=== PATIENT | female | born 1940 | race Caucasian/White ===

== ENCOUNTER → 2017-02-03 | Outpatient (CLI) | payer OTHER ==
[~2017-02-03] MED LIST: ACET-1256 PO; AMX500 PO; ATOR-26 PO; BENZ0.5T28 PO; CEPH500C PO; DEXT100S PO; DEXT1CAP9 PO; DIPH1CAP60 PO; DIPH25CA65 PO; ESTCR TOP; MRLP527 PO; MTR/600 PO; PENT100C6 PO; PERP4TAB37 PO; PHEN-876 PO; SOLI5TAB2 PO; TRAM-10 PO; TRL2 PO
[2017-02-03 14:39] LABS: BASO % 0.1 %; BASO ABS # 0.02 K/uL (0-0.2); COMPLETE YES; EOS % 0.6 %; HEMATOCRIT 42.3 % (37-47); IG% 0.3 %; LYMPH % 15.3 %; LYMPH ABS # 2.21 K/uL (1.2-3.4); MEAN CELL VOLUME 92.2 fL (80-100); MEAN CORPUSCULAR HEMOGLOBIN 29.6 pg (25-34); MEAN CORPUSCULAR HGB CONC 32.2 g/dl (32-36); MEAN PLATELET VOLUME 9.3 fL (7.4-10.4); MONO % 6.4 %; NEUT % 77.3 %; PLATELET COUNT 268 K/uL (130-400); RED BLOOD COUNT 4.59 M/uL (4.2-5.4); WHITE BLOOD COUNT 14.45 K/uL (4.8-10.8)
[2017-02-03 15:16] LABS: ALT/SGPT 23 U/L (12-78); AST/SGOT 12 U/L (15-37); BLOOD UREA NITROGEN 21 mg/dl (7-18); BUN/CREATININE RATIO 22.8 (10-20); CALCIUM 8.8 mg/dl (8.5-10.1); CARBON DIOXIDE 27 mmol/L (21-32); CHLORIDE 107 mmol/L (98-107); CREATININE 0.93 mg/dl (0.60-1.20); GLUCOSE 126 mg/dl (70-99); POTASSIUM 3.9 mmol/L (3.5-5.1); SODIUM 142 mmol/L (136-145)
[2017-02-03 15:27] LABS: ALB/GLOB RATIO 0.9 (0.9-2); ALKALINE PHOSPHATASE 138 U/L (45-117); CHOLESTEROL 120 mg/dl (0-200); CHOLESTEROL/HDL RATIO 2.7; HDL CHOLESTEROL 45 mg/dl; LDL CHOLESTEROL CALCULATED 35 mg/dl; TRIGLYCERIDES 201 mg/dl (0-150); VERY LOW DENSITY LIPOPROT CALC 40 mg/dl
[2017-02-04 06:46] LABS: ESTIMATED AVERAGE GLUCOSE 134 mg/dl; HA1C FLAG Normal (Normal)
== END | disposition home or self-care (01) ==
LOC: C.LAB 14:06
PROVIDERS: ATTEND Internal Medicine
DX: E11.9 Type 2 diabetes mellitus without complications (principal)

== ENCOUNTER → 2017-02-16 | Outpatient (CLI) | payer OTHER ==
[2017-02-16 17:35] LABS: URINE APPEARANCE CLEAR (CLEAR); URINE BILIRUBIN NEG (NEG); URINE COLOR YELLOW; URINE EPITHELIAL CELL AUTO >30 /lpf (0-5); URINE NITRITE NEG (NEG); URINE SPECIFIC GRAVITY 1.013 (1.000-1.030); UROBILINOGEN NEG (NEG)
[2017-02-16 17:39] LABS: MANUAL MICROSCOPIC REQUIRED? NO; REVIEW REQ? NO
== END | disposition home or self-care (01) ==
LOC: C.LABBFT 13:45
PROVIDERS: ATTEND Internal Medicine
DX: R39.9 Unspecified symptoms and signs involving the genitourinary system (principal)

== ENCOUNTER 2017-06-03 18:40 | Emergency (ER) | payer OTHER ==
[~2017-06-03] VITALS: Ht 154.9 cm; Wt 72.1 kg
[~2017-06-03 18:40] MED LIST changes: -BENZ0.5T28 PO; -CEPH500C PO; +CGN5 PO; -DIPH1CAP60 PO; -PENT100C6 PO; -PERP4TAB37 PO; -PHEN-876 PO
[2017-06-03 19:05] VITALS: Ht 154.9 cm; Wt 72.1 kg
[2017-06-03] MEDS ORDERED: KETOROLAC TROMETHAMINE 15 MG/ML VIAL IV STA (20:25)
[2017-06-03] MEDS ORDERED: PHENAZOPYRIDINE HCL 200 MG TAB PO STA (20:25)
--- NOTE | 2017-06-03 20:30 | EMERGENCY ROOM VISIT NOTE ---
History Report prepared by Seema: Erlinda Flores Under the Supervision of: Dr. Gordon Younger M.D. First contact with patient: 20:16 Chief Complaint: URINARY SYMPTOMS Stated Complaint: POSSIBLE UTI, PAIN/BURNING Nursing Triage Summary: chronic UTIs. symptoms started yesterday. History of Present Illness The patient is a 77 year old female who presents to the Emergency Room with complaints of persistent groin pain starting several weeks ago. The patient describes the as burning. It improves with Tylenol and ibuprofen. She has had multiple UTIs in the past and has followed with urologist, but they have not found the cause of her UTIs. The church communications administrator at the personal residential states that she has been at baseline. She has been on antibiotics. She denies any abdominal pain or other pain besides the groin pain. Source of History: patient, other Onset: several weeks ago Position: other (groin) Quality: burning Timing: other (persistent) Modifying Factors (Relieving): tylenol, ibuprofen Associated Symptoms: No abdominal pain Review of Systems See HPI for pertinent positives & negatives. A total of 10 systems reviewed and were otherwise negative. Past Medical & Surgical Medical Problems: (1) Hyperlipidemia (2) Schizophrenia (3) Tremor Surgical Problems: (1) H/O: hysterectomy Family History Asthma Bleeding disorder Depression Kidney disease Seizures Social History Smoking Status: Never Smoker Alcohol Use: none Drug Use: none Marital Status: single Occupation Status: retired Current/Historical Medications Scheduled Atorvastatin (Lipitor), 80 MG PO DAILY Cephalexin Monohydrate (Keflex), 1 CAP PO BID Diphenhydramine Hcl (Diphenhist), 1 CAP PO HS Pentosan Polysulfate Sodium (Elmiron), 1 CAP PO TID Perphenazine (Trilafon), 1 TAB PO TID Phenazopyridine HCl (Pyridium), 200 MG PO TID Polyethylene (Polyethylene Glycol 3350), 17 GM PO DAILY Solifenacin Succinate (Vesicare), 5 MG PO DAILY Scheduled PRN Acetaminophen (Tylenol), 1,000 MG PO TID PRN for Pain or Fever Dextromethorphan-Guaifenesin (Tussin Dm), 10 ML PO HS PRN for Cough Dextromethorphan-Phenylephrine (Vicks Dayquil Cold & Flu), 30 ML PO Q4 PRN for Cold Symptoms Ibuprofen (Ibuprofen), 600 MG PO TID PRN for Pain Allergies Coded Allergies: Morphine (Verified Adverse Reaction, Unknown, Nausea., 06/03/17) Reported by PT. Physical Exam Vital Signs Date Time Temp Pulse Resp B/P (MAP) Pulse Ox O2 Delivery O2 Flow Rate FiO2 06/03/17 23:01 36.7 80 20 155/80 95 Room Air 06/03/17 20:48 36.7 80 20 163/80 95 Room Air 06/03/17 19:05 36.9 78 20 140/82 94 Room Air Physical Exam GENERAL: Patient is a healthy-appearing well-nourished female HEAD: Normocephalic atraumatic EYES: Ocular movements intact pupils equal and react to light OROPHARYNX mucous membranes are moist no exudates present no erythema or edema present NECK: Supple no nuchal rigidity CHEST: Good equal expansion LUNGS: Clear and equal to auscultation CARDIAC: Normal S1 and S2 ABDOMEN: Soft nontender no guarding BACK: No CVA tenderness EXTREMITIES: No pain upon palpation normal muscle strength in all groups no clubbing cyanosis or edema NEURO: Patient is following commands and answering questions appropriately. Alert and oriented x3 Cranial Nerves 2-12 grossly intact Medical Decision & Procedures ER Provider Diagnostic Interpretation: Radiology results as stated below per my review and radiologist interpretation: PELVIC COMPLETE NON OB HISTORY: 77 years-old Female Pt c/o vag burning acute vaginal bleeding. Initial exam COMPARISON: CT 04/18/2016 TECHNIQUE: Multiple real-time sonographic images of the deep pelvic structures were obtained transabdominally. FINDINGS: Uterus is surgically absent. Ovaries are not identified. No focal mass, collection or other abnormality identified within the pelvis. No abnormality seen within the region of the vaginal cuff. Urinary bladder is unremarkable as seen. IMPRESSION: 1. Prior hysterectomy. No focal abnormality seen within the region of the vaginal cuff. 2. Nonvisualization of the ovaries. The above report was generated using voice recognition software. It may contain grammatical, syntax or spelling errors. Electronically signed by: Elfego Carson M.D. 06/03/2017 11:01 PM Dictated Date/Time: 06/03/2017 11:00 PM Laboratory Results 06/03/17 20:30 Red Blood Count 4.31, Mean Corpuscular Volume 91.4, Mean Corpuscular Hemoglobin 30.6, Mean Corpuscular Hemoglobin Concent 33.5, Mean Platelet Volume 9.5, Neutrophils (%) (Auto) 71.2, Lymphocytes (%) (Auto) 19.7, Monocytes (%) (Auto) 7.3, Eosinophils (%) (Auto) 1.4, Basophils (%) (Auto) 0.2, Neutrophils # (Auto) 8.94, Lymphocytes # (Auto) 2.47, Monocytes # (Auto) 0.92, Eosinophils # (Auto) 0.18, Basophils # (Auto) 0.02 06/03/17 20:30 Test 06/03/17 20:14 06/03/17 20:30 Urine Color YELLOW Urine Appearance CLEAR (CLEAR) Urine pH 6.0 (4.5-7.5) Urine Specific [place] 1.019 (1.000-1.030) Urine Protein NEG (NEG) Urine Glucose (UA) NEG (NEG) Urine Ketones NEG (NEG) Urine Occult Blood NEG (NEG) Urine Nitrite NEG (NEG) Urine Bilirubin NEG (NEG) Urine Urobilinogen NEG (NEG) Urine Leukocyte Esterase MODERATE (NEG) Urine WBC (Auto) 5-10 /hpf (0-5) Urine RBC (Auto) 0-4 /hpf (0-4) Urine Hyaline Casts (Auto) 1-5 /lpf (0-5) Urine Epithelial Cells (Auto) >30 /lpf (0-5) Urine Bacteria (Auto) NEG (NEG) White Blood Count 12.55 K/uL (4.8-10.8) Red Blood Count 4.31 M/uL (4.2-5.4) Hemoglobin 13.2 g/dL (12.0-16.0) Hematocrit 39.4 % (37-47) Mean Corpuscular Volume 91.4 fL (80-100) Mean Corpuscular Hemoglobin 30.6 pg (25-34) Mean Corpuscular Hemoglobin Concent 33.5 g/dl (32-36) Platelet Count 223 K/uL (130-400) Mean Platelet Volume 9.5 fL (7.4-10.4) Neutrophils (%) (Auto) 71.2 % Lymphocytes (%) (Auto) 19.7 % Monocytes (%) (Auto) 7.3 % Eosinophils (%) (Auto) 1.4 % Basophils (%) (Auto) 0.2 % Neutrophils # (Auto) 8.94 K/uL (1.4-6.5) Lymphocytes # (Auto) 2.47 K/uL (1.2-3.4) Monocytes # (Auto) 0.92 K/uL (0.11-0.59) Eosinophils # (Auto) 0.18 K/uL (0-0.5) Basophils # (Auto) 0.02 K/uL (0-0.2) RDW Standard Deviation 47.4 fL (36.4-46.3) RDW Coefficient of Variation 14.1 % (11.5-14.5) Immature Granulocyte % (Auto) 0.2 % Immature Granulocyte # (Auto) 0.02 K/uL (0.00-0.02) Anion Gap 9.0 mmol/L (3-11) Est Creatinine Clear Calc Drug Dose 46.2 ml/min Estimated GFR () 68.3 Estimated GFR (Non- 58.9 BUN/Creatinine Ratio 20.6 (10-20) Calcium Level 9.3 mg/dl (8.5-10.1) Total Bilirubin 0.5 mg/dl (0.2-1) Direct Bilirubin 0.2 mg/dl (0-0.2) Aspartate Amino Transf (AST/SGOT) 21 U/L (15-37) Alanine Aminotransferase (ALT/SGPT) 29 U/L (12-78) Alkaline Phosphatase 134 U/L (45-117) Total Protein 6.8 gm/dl (6.4-8.2) Albumin 3.3 gm/dl (3.4-5.0) Lipase 135 U/L (73-393) Labs reviewed by ED physician. Medications Administered Medications (Trade) Dose Ordered Sig/Megan Route Start Time Stop Time Status Last Admin Dose Admin Phenazopyridine HCl (Pyridium Tab) 200 mg NOW STAT PO 06/03/17 20:25 06/03/17 20:27 DC 06/03/17 20:39 200 MG Ketorolac Tromethamine (Toradol Inj) 15 mg Q6H STAT IV 06/03/17 20:25 06/03/17 20:27 DC 06/03/17 20:39 15 MG Sodium Chloride 1,000 ml @ 999 mls/hr Q1H1M STAT IV 06/03/17 21:57 06/03/17 22:57 DC 06/03/17 22:00 999 MLS/HR Ceftriaxone Sodium (Rocephin Inj) 1 gm NOW STAT IV 06/03/17 21:57 06/03/17 21:58 DC 06/03/17 22:02 1 GM Cephalexin Monohydrate (Keflex 500MG Home Pack) 1 homepack NOW ONCE PO 06/03/17 23:15 06/03/17 23:16 DC 06/03/17 23:24 1 HOMEPACK Phenazopyridine HCl (Phenazopyridine HCl 200MG Home Pack) 1 homepack UD ONCE PO 06/03/17 23:15 06/03/17 23:16 DC 06/03/17 23:25 1 HOMEPACK ED Course 2020: Past medical records reviewed. The patient was evaluated in room C3. A complete history and physical examination was performed. 2024: Toradol Inj 15 mg IV, Pyridium Tab 200 mg PO. 2156: Rocephin Inj 1 gm IV, NSS 1000 ml @ 999 mls/hr IV. 0: Upon reexamination the patient is resting comfortably. I discussed results and treatment plan with the patient. She verbalizes agreement and understanding. The patient is ready for discharge. 5: Phenazopyridine HCl 1 homepack PO, Cephalexin Monohydrate 1 homepack PO. Medical Decision Differential diagnosis: Etiologies such as appendicitis, diverticulitis, PUD, biliary pathology, UTI, pancreatitis, obstruction, mesenteric ischemia, aortic pathology, infections, inflammatory bowel disease, renal colic, as well as others were entertained. This is a 77-year-old female who presents emergency department complaining of urinary symptoms that have been ongoing for months. The patient has been following up with urologist however still having issues. Based on these findings the patient was placed on peridium. She does appear to have a large amount of white blood cells in her urine and I will start her Rocephin and Keflex pending urine culture. Ultrasound of the pelvis does not show any acute process. The patient does have a slight elevation in her white blood cell count that would be consistent with infection. I do feel that she is safe enough to be discharged home as she does not have an elevation in her white blood count cell count. Patient and guardian were in agreement with the treatment plan. Medication Reconcilliation Current Medication List: was personally reviewed by me Blood Pressure Screening Patient's blood pressure: Elevated blood pressure Blood pressure disposition: Elevated BP felt to be situational Impression Primary Impression: Symptoms of urinary tract infection Scribe Attestation The scribe's documentation has been prepared under my direction and personally reviewed by me in its entirety. I confirm that the note above accurately reflects all work, treatment, procedures, and medical decision making performed by me. Departure Information Dispostion Home / Self-Care Prescriptions Phenazopyridine HCl (Pyridium) 200 Mg Tab 200 MG PO TID for Bladder pain, #6 TAB Prov: Gordon Younger MD 06/03/17 Cephalexin Monohydrate (Keflex) 500 Mg Cap 1 CAP PO BID for 7 Days, #14 CAP Prov: Gordon Younger MD 06/03/17 Referrals Dwayne Murray M.D. (PCP) Forms HOME CARE DOCUMENTATION FORM, IMPORTANT VISIT INFORMATION Patient Instructions My [facility] Additional Instructions Need follow up with Urology Culture results are usually available in approx 48 hours You have been examined and treated today on an emergency basis only. This is not a substitute for, or an effort to provide, complete comprehensive medical care. It is impossible to recognize and treat all injuries or illnesses in a single emergency department visit. It is therefore important that you follow up closely with Dr Murray. Call as soon as possible for an appointment. Thank you for your time and consideration. I look forward to speaking with you again soon. Please don't hesitate to call us if you have any questions.
[2017-06-03 20:40] LABS: BASO % 0.2 %; BASO ABS # 0.02 K/uL (0-0.2); COMPLETE YES; EOS % 1.4 %; HEMATOCRIT 39.4 % (37-47); IG% 0.2 %; LYMPH % 19.7 %; LYMPH ABS # 2.47 K/uL (1.2-3.4); MEAN CELL VOLUME 91.4 fL (80-100); MEAN CORPUSCULAR HEMOGLOBIN 30.6 pg (25-34); MEAN CORPUSCULAR HGB CONC 33.5 g/dl (32-36); MEAN PLATELET VOLUME 9.5 fL (7.4-10.4); MONO % 7.3 %; NEUT % 71.2 %; PLATELET COUNT 223 K/uL (130-400); RED BLOOD COUNT 4.31 M/uL (4.2-5.4); WHITE BLOOD COUNT 12.55 K/uL (4.8-10.8)
[2017-06-03 20:58] LABS: BUN/CREATININE RATIO 20.6 (10-20); CALCIUM 9.3 mg/dl (8.5-10.1); CREATININE 0.94 mg/dl (0.60-1.20); POTASSIUM 3.7 mmol/L (3.5-5.1)
[2017-06-03 20:59] LABS: URINE APPEARANCE CLEAR (CLEAR); URINE BILIRUBIN NEG (NEG); URINE COLOR YELLOW; URINE EPITHELIAL CELL AUTO >30 /lpf (0-5); URINE NITRITE NEG (NEG); URINE SPECIFIC GRAVITY 1.019 (1.000-1.030); UROBILINOGEN NEG (NEG)
[2017-06-03 21:03] LABS: MANUAL MICROSCOPIC REQUIRED? NO; REVIEW REQ? NO
[2017-06-03] MEDS ORDERED: CEFTRIAXONE SOD INJ 1 GM ADDVIAL IV STA (21:57)
[2017-06-03] MEDS ORDERED: SODIUM CHLORIDE 0.9% 1000ML 1,000 ML IV STA (21:57)
[2017-06-03 23:01] VITALS: BP 155/80; PULSE 80; TEMP 36.7; O2SAT 95
[2017-06-03] MEDS ORDERED: DIPH1CAP60 PO (23:02)
[2017-06-03] MEDS ORDERED: PERP1TAB11 PO (23:02)
[2017-06-03] MEDS ORDERED: PENT100C6 PO (23:02)
--- NOTE | 2017-06-03 23:02 | DIAGNOSTIC IMAGING REPORT ---
PELVIC COMPLETE NON OB HISTORY: 77 years-old Female Pt c/o vag burning acute vaginal bleeding. Initial exam COMPARISON: CT 04/18/2016 TECHNIQUE: Multiple real-time sonographic images of the deep pelvic structures were obtained transabdominally. FINDINGS: Uterus is surgically absent. Ovaries are not identified. No focal mass, collection or other abnormality identified within the pelvis. No abnormality seen within the region of the vaginal cuff. Urinary bladder is unremarkable as seen. IMPRESSION: 1. Prior hysterectomy. No focal abnormality seen within the region of the vaginal cuff. 2. Nonvisualization of the ovaries. The above report was generated using voice recognition software. It may contain grammatical, syntax or spelling errors. Electronically signed by: Elfego Carson M.D. 06/03/2017 11:01 PM Dictated Date/Time: 06/03/2017 11:00 PM
[2017-06-03] MEDS ORDERED: CEPH500C PO (23:12)
[2017-06-03] MEDS ORDERED: PHEN-876 PO (23:12)
[2017-06-03] MEDS ORDERED: CEPHALEXIN 500MG HOME PACK 1 EA BTL PO ONE (23:15)
[2017-06-03] MEDS ORDERED: PHENAZOPYRIDINE HOME PACK 200 MG VIAL PO ONE (23:15)
== END 2017-06-03 23:27 | disposition home or self-care (01) ==
LOC: C.EDB 18:41 → C.EDC 23:27
DX: R10.30 Lower abdominal pain, unspecified (principal); Z87.440 Personal history of urinary (tract) infections; E78.5 Hyperlipidemia, unspecified; F20.9 Schizophrenia, unspecified; Z90.710 Acquired absence of both cervix and uterus; Z82.5 Family history of asthma and other chronic lower respiratory diseases; Z81.8 Family history of other mental and behavioral disorders; Z79.899 Other long term (current) drug therapy

== ENCOUNTER → 2017-08-10 | Outpatient (CLI) | payer OTHER ==
[~2017-08-10] MED LIST changes: -AMX500 PO; -CGN5 PO; +DIPH1CAP60 PO; -DIPH25CA65 PO; -ESTCR TOP; +PENT100C6 PO; +PERP4TAB37 PO; +PHEN-876 PO; -TRAM-10 PO; -TRL2 PO
[2017-08-10 14:40] LABS: BASO % 0.1 %; BASO ABS # 0.02 K/uL (0-0.2); COMPLETE YES; EOS % 0.1 %; IG% 0.5 %; LYMPH % 15.7 %; LYMPH ABS # 2.71 K/uL (1.2-3.4); MEAN CELL VOLUME 92.6 fL (80-100); MEAN CORPUSCULAR HEMOGLOBIN 30.3 pg (25-34); MEAN CORPUSCULAR HGB CONC 32.8 g/dl (32-36); MEAN PLATELET VOLUME 9.4 fL (7.4-10.4); MONO % 7.1 %; NEUT % 76.5 %; PLATELET COUNT 304 K/uL (130-400); RED BLOOD COUNT 4.32 M/uL (4.2-5.4); WHITE BLOOD COUNT 17.27 K/uL (4.8-10.8)
[2017-08-10 14:52] LABS: ALT/SGPT 27 U/L (12-78); AST/SGOT 16 U/L (15-37); BLOOD UREA NITROGEN 18 mg/dl (7-18); BUN/CREATININE RATIO 20.7 (10-20); CALCIUM 8.7 mg/dl (8.5-10.1); CARBON DIOXIDE 27 mmol/L (21-32); CHLORIDE 104 mmol/L (98-107); CREATININE 0.87 mg/dl (0.60-1.20); GLUCOSE 140 mg/dl (70-99); POTASSIUM 3.7 mmol/L (3.5-5.1); SODIUM 137 mmol/L (136-145)
[2017-08-10 15:00] LABS: CREATININE RANDOM URINE 94.6 mg/dl
[2017-08-10 15:03] LABS: ALB/GLOB RATIO 0.8 (0.9-2); ALKALINE PHOSPHATASE 143 U/L (45-117); CHOLESTEROL 114 mg/dl (0-200); CHOLESTEROL/HDL RATIO 2.9; ESTIMATED AVERAGE GLUCOSE 117 mg/dl; HA1C FLAG Normal (Normal); HDL CHOLESTEROL 40 mg/dl; LDL CHOLESTEROL CALCULATED 37 mg/dl; TRIGLYCERIDES 187 mg/dl (0-150); VERY LOW DENSITY LIPOPROT CALC 37 mg/dl
[2017-08-10 15:10] LABS: RATIO 30.2 mcg/mg (0-30.0)
== END | disposition home or self-care (01) ==
LOC: C.LAB 14:04
PROVIDERS: ATTEND Internal Medicine
DX: E11.9 Type 2 diabetes mellitus without complications (principal); E78.00 Pure hypercholesterolemia, unspecified

== ENCOUNTER 2017-10-08 16:13 | Inpatient (IN) | payer OTHER ==
[~2017-10-08] VITALS: Ht 154.9 cm; Wt 63.8 kg
[2017-10-08] MEDS ORDERED: KETOROLAC TROMETHAMINE 30 MG/ML VIAL IV STA (16:45)
[2017-10-08] MEDS ORDERED: SODIUM CHLORIDE 0.9% 1000ML 1,000 ML IV STA ×3 (16:45→23:18)
[2017-10-08] MEDS ORDERED: ONDANSETRON INJ 2 MG/ML 2 ML VIAL IV STA (16:45)
--- NOTE | 2017-10-08 16:47 | EMERGENCY ROOM VISIT NOTE ---
History Report prepared by Seema: Juan Dumont Under the Supervision of: Dr. Yovani Ovalles M.D. First contact with patient: 16:36 Chief Complaint: ABDOMINAL PAIN Stated Complaint: EXTREME PAIN BLADDER/STOMACH History of Present Illness The patient is a 77 year old female who presents to the Emergency Room from her personal correction ([facility]) with complaints of constant lower abdominal pain starting today. She currently rates her discomfort as an 8/10 in severity. The patient has a history of chronic bladder pain sometimes associated with UTIs , and sometimes she does not have a UTI with the pain. She has been following up with urology, and they have no clear cause for the pain. The patient states that she has burning with urination, and she has a cough from getting over pneumonia. She was on levofloxacin and steroids for her pneumonia started on the . She denies any fever, chills, nausea, vomiting, and hematuria. The patient has a history of two vaginal births. Source of History: patient Onset: today Position: abdomen (lower) Symptom Intensity: 8/10 Timing: constant Associated Symptoms: + cough, No fevers, No chills, No nausea, No vomiting Note: Associated symptoms: Pain with urination Review of Systems See HPI for pertinent positives and negatives. A total of ten systems were reviewed and were otherwise negative. Past Medical & Surgical Medical Problems: (1) Hyperlipidemia (2) Interstitial cystitis (3) Intractable pain (4) Schizophrenia (5) Tremor Surgical Problems: (1) H/O: hysterectomy Family History Asthma Bleeding disorder Depression Kidney disease Seizures Social History Smoking Status: Never Smoker Alcohol Use: none Drug Use: none Marital Status: single Occupation Status: retired Current/Historical Medications Scheduled Atorvastatin (Lipitor), 80 MG PO DAILY Diphenhydramine Hcl (Diphenhist), 25 MG PO HS Levofloxacin (Levaquin), 750 MG PO QPM Pentosan Polysulfate Sodium (Elmiron), 100 MG PO TID Perphenazine (Trilafon), 4 MG PO TID Phenazopyridine HCl (Pyridium), 200 MG PO TID Polyethylene (Polyethylene Glycol 3350), 17 GM PO DAILY Prednisone (Prednisone), 1 DOSE PO UD Solifenacin Succinate (Vesicare), 5 MG PO DAILY Scheduled PRN Acetaminophen (Tylenol), 500-1,000 MG PO TID PRN for Pain or Fever Clobetasol Propionate (Temovate), 1 APPLN TOP DAILY PRN for Itching Dextromethorphan-Guaifenesin (Tussin Dm), 10 ML PO HS PRN for Cough Dextromethorphan-Phenylephrine (Vicks Dayquil Cold & Flu), 30 ML PO Q4 PRN for Cold Symptoms Ibuprofen (Ibuprofen), 600 MG PO TID PRN for Pain Allergies Coded Allergies: Morphine (Verified Adverse Reaction, Unknown, Nausea., 10/08/17) Reported by PT. Physical Exam Vital Signs Date Time Temp Pulse Resp B/P (MAP) Pulse Ox O2 Delivery O2 Flow Rate FiO2 10/09/17 03:23 65 18 117/56 100 10/09/17 02:36 98 Nasal Cannula 3.0 10/09/17 02:36 59 16 105/56 98 Nasal Cannula 3.0 10/09/17 02:35 84 Room Air 10/09/17 01:33 67 18 134/50 98 Room Air 10/09/17 00:22 98 18 127/82 93 Room Air 10/08/17 23:28 107 18 130/77 98 Room Air 10/08/17 21:54 74 18 165/83 96 Room Air 10/08/17 19:58 91 22 98 10/08/17 19:57 130/99 10/08/17 19:43 102 29 90 10/08/17 19:29 80 18 164/112 96 Room Air 10/08/17 19:28 86 31 97 10/08/17 19:10 174/87 10/08/17 18:58 30 10/08/17 18:43 24 10/08/17 18:35 70 20 10/08/17 18:28 78 23 10/08/17 18:13 73 15 10/08/17 17:58 69 25 10/08/17 17:43 70 13 10/08/17 17:35 96 10/08/17 16:24 36.4 120 18 126/69 96 Room Air Physical Exam GENERAL: Uncomfortable in no distress HENT: Normocephalic, atraumatic. Oropharynx unremarkable. EYES: Normal conjunctiva. Sclera non-icteric. NECK: Supple. No nuchal rigidity. FROM. No JVD. RESPIRATORY: Clear to auscultation. CARDIAC: Regular rate, normal rhythm. Extremities warm and well perfused. Pulses equal. ABDOMEN: Mild tenderness sin the suprapubic region with minimal fullness. No peritoneal signs. Soft, non-distended. No rebound or guarding. No masses. RECTAL: Deferred. MUSCULOSKELETAL: Chest examination reveals no tenderness. The back is symmetrical on inspection without obvious abnormality. There is no CVA tenderness to palpation. No joint edema. LOWER EXTREMITIES: Calves are equal size bilaterally and non-tender. No edema. No discoloration. NEURO: Normal sensorium. No sensory or motor deficits noted. SKIN: No rash or jaundice noted. Medical Decision & Procedures ER Provider Diagnostic Interpretation: Radiology results as stated below per my review and radiologist interpretation: CT SCAN OF THE ABDOMEN AND PELVIS WITH IV CONTRAST CLINICAL HISTORY: Lower abdominal pain. COMPARISON STUDY: Abdominal CT dated 04/18/2016. TECHNIQUE: Following the IV administration of 115 cc of Optiray 320, CT scan of the abdomen and pelvis is performed from the lung bases to the proximal femora. Images are reviewed in the axial, sagittal, and coronal planes. IV contrast was administered without complication. The examination is degraded by streak artifact from the patient's arms which could not be elevated above the abdomen, as well as by motion artifact. A dose lowering protocol was utilized adhering to the principles of ALARA. CT DOSE: 471.59 mGy.cm FINDINGS: Lung bases: The heart is top normal in size and without pericardial effusion. The lung bases are clear noting dependent atelectasis. Liver: The contrast-enhanced liver is normal in size, contour, and attenuation. There are small calcified hepatic granulomas. There is no intrahepatic biliary ductal dilatation. The hepatic veins and portal veins are patent. Gallbladder: Unremarkable. Spleen: Normal in size and attenuation. There are small calcified splenic granulomas. Pancreas: Atrophic. Adrenal glands: A 1.3 cm right adrenal nodule is unchanged from 2014. This was previously shown to represent a fat-containing adenoma. The left adrenal gland is normal in appearance. Kidneys: The contrast enhanced kidneys history cortical atrophy and are without hydronephrosis. The kidneys enhance symmetrically. A 3.4 cm cyst is noted on the right. Additional subcentimeter cortical hypodensities also likely represent cysts but are too small for definitive characterization. Abdominal vasculature: The abdominal aorta is normal in course and caliber noting moderate atherosclerotic calcification. Bowel: The small bowel and colon are normal in course and caliber. There is mild to moderate colonic fecal retention. The appendix is well-visualized and normal. Peritoneum: There is no intraperitoneal free air or abdominal ascites. There is a small fat-containing umbilical hernia. Lymphadenopathy: None. Pelvic viscera: The bladder is normal as visualized. The uterus is surgically absent. No adnexal lesion is seen. Numerous calcified phleboliths are identified in the pelvis. Skeletal structures: The skeletal structures are osteopenic. No lytic or blastic lesions are seen. There is mild to moderate lumbosacral spondylosis. A minimal chronic superior endplate compression deformity is again noted in L4. IMPRESSION: 1. There are no acute infectious or inflammatory findings in the abdomen or pelvis. 2. Chronic findings as above. Electronically signed by: Nelson Peters M.D. 10/08/2017 7:34 PM Dictated Date/Time: 10/08/2017 7:27 PM Laboratory Results 10/08/17 17:15 Red Blood Count 4.62, Mean Corpuscular Volume 89.6, Mean Corpuscular Hemoglobin 30.3, Mean Corpuscular Hemoglobin Concent 33.8, Mean Platelet Volume 10.6, Neutrophils (%) (Auto) 76.9, Lymphocytes (%) (Auto) 12.9, Monocytes (%) (Auto) 9.1, Eosinophils (%) (Auto) 0.0, Basophils (%) (Auto) 0.1, Neutrophils # (Auto) 9.57, Lymphocytes # (Auto) 1.60, Monocytes # (Auto) 1.13, Eosinophils # (Auto) 0.00, Basophils # (Auto) 0.01 10/08/17 17:15 Test 10/08/17 17:09 10/08/17 17:15 10/08/17 20:13 10/08/17 22:36 Urine Color YELLOW Urine Appearance CLOUDY (CLEAR) Urine pH 5.0 (4.5-7.5) Urine Specific Harmony 1.024 (1.000-1.030) Urine Protein TRACE (NEG) Urine Glucose (UA) NEG (NEG) Urine Ketones TRACE (NEG) Urine Occult Blood NEG (NEG) Urine Nitrite NEG (NEG) Urine Bilirubin NEG (NEG) Urine Urobilinogen NEG (NEG) Urine Leukocyte Esterase NEG (NEG) Urine WBC (Auto) 1-5 /hpf (0-5) Urine RBC (Auto) 0-4 /hpf (0-4) Urine Hyaline Casts (Auto) 5-10 /lpf (0-5) Urine Epithelial Cells (Auto) >30 /lpf (0-5) Urine Bacteria (Auto) NEG (NEG) Urine Crystals CALCIUM OXALATE (NONE Urine Pathogenic Casts 1-5 WBC CASTS /lpf (0) White Blood Count 12.43 K/uL (4.8-10.8) Red Blood Count 4.62 M/uL (4.2-5.4) Hemoglobin 14.0 g/dL (12.0-16.0) Hematocrit 41.4 % (37-47) Mean Corpuscular Volume 89.6 fL (80-100) Mean Corpuscular Hemoglobin 30.3 pg (25-34) Mean Corpuscular Hemoglobin Concent 33.8 g/dl (32-36) Platelet Count 222 K/uL (130-400) Mean Platelet Volume 10.6 fL (7.4-10.4) Neutrophils (%) (Auto) 76.9 % Lymphocytes (%) (Auto) 12.9 % Monocytes (%) (Auto) 9.1 % Eosinophils (%) (Auto) 0.0 % Basophils (%) (Auto) 0.1 % Neutrophils # (Auto) 9.57 K/uL (1.4-6.5) Lymphocytes # (Auto) 1.60 K/uL (1.2-3.4) Monocytes # (Auto) 1.13 K/uL (0.11-0.59) Eosinophils # (Auto) 0.00 K/uL (0-0.5) Basophils # (Auto) 0.01 K/uL (0-0.2) RDW Standard Deviation 45.6 fL (36.4-46.3) RDW Coefficient of Variation 14.0 % (11.5-14.5) Immature Granulocyte % (Auto) 1.0 % Immature Granulocyte # (Auto) 0.12 K/uL (0.00-0.02) Anion Gap 8.0 mmol/L (3-11) Est Creatinine Clear Calc Drug Dose 36.4 ml/min Estimated GFR () 54.7 Estimated GFR (Non- 47.2 BUN/Creatinine Ratio 26.9 (10-20) Calcium Level 8.7 mg/dl (8.5-10.1) Total Bilirubin 1.7 mg/dl (0.2-1) Direct Bilirubin 0.4 mg/dl (0-0.2) Aspartate Amino Transf (AST/SGOT) 47 U/L (15-37) Alanine Aminotransferase (ALT/SGPT) 45 U/L (12-78) Alkaline Phosphatase 76 U/L (45-117) Total Protein 6.9 gm/dl (6.4-8.2) Albumin 3.5 gm/dl (3.4-5.0) Lipase 167 U/L (73-393) Bedside Lactic Acid Venous 3.12 mmol/L (0.90-1.70) Lactic Acid Level 2.7 mmol/L (0.4-2.0) Test 10/09/17 00:46 Date/Time Source Procedure Growth Status 10/09/17 00:46 Vaginal Drainage Trichomonas Preparation - Final Complete Laboratory results reviewed by me Medications Administered Medications (Trade) Dose Ordered Sig/Megan Route Start Time Stop Time Status Last Admin Dose Admin Sodium Chloride 1,000 ml @ 999 mls/hr Q1H1M STAT IV 10/08/17 16:45 10/08/17 17:45 DC 10/08/17 17:12 999 MLS/HR Ketorolac Tromethamine (Toradol Inj) 15 mg NOW STAT IV 10/08/17 16:45 10/08/17 16:47 DC 10/08/17 17:13 15 MG Ondansetron HCl (Zofran Inj) 4 mg NOW STAT IV 10/08/17 16:45 10/08/17 16:47 DC 10/08/17 17:12 4 MG Sodium Chloride 1,000 ml @ 999 mls/hr Q1H1M STAT IV 10/08/17 18:15 10/08/17 19:15 DC 10/08/17 19:56 999 MLS/HR Fentanyl Citrate (Fentanyl Inj) 50 mcg NOW STAT IV 10/08/17 18:15 10/08/17 18:18 DC 10/08/17 18:27 50 MCG Fentanyl Citrate (Fentanyl Inj) 100 mcg NOW ONCE IV 10/08/17 19:00 10/08/17 19:01 DC 10/08/17 19:05 100 MCG Acetaminophen (Tylenol Tab) 1,000 mg NOW STAT PO 2/8/18 20:01 10/08/17 20:03 DC 10/08/17 20:37 1,000 MG Tamsulosin HCl (Flomax Cap) 0.4 mg NOW ONCE PO 10/08/17 20:15 10/08/17 20:16 DC 10/08/17 20:37 0.4 MG Perphenazine (Trilafon Tab) 4 mg NOW STAT PO 10/08/17 22:05 10/08/17 22:08 DC 10/08/17 22:20 4 MG Lorazepam (Ativan Tab) 0.5 mg NOW STAT PO 10/08/17 22:07 10/08/17 22:09 DC 10/08/17 22:20 0.5 MG Piperacillin Sod/ Tazobactam Sod (Zosyn Iv) 4.5 gm NOW STAT IV 10/08/17 23:16 10/08/17 23:19 DC 10/08/17 23:36 4.5 GM Sodium Chloride 1,000 ml @ 125 mls/hr Q8H STAT IV 10/08/17 23:18 10/09/17 07:17 10/08/17 23:33 125 MLS/HR Vancomycin HCl 1250 mg/Sodium Chloride 275 ml @ 125 mls/hr NOW STAT IV 10/08/17 23:29 10/09/17 01:40 DC 10/09/17 00:19 125 MLS/HR Fentanyl Citrate (Fentanyl Inj) 50 mcg NOW STAT IV 10/08/17 23:44 10/08/17 23:45 DC 10/08/17 23:53 50 MCG ED Course 1636: The patient was evaluated in room A2. A complete history and physical exam was performed. 2206: Upon reevaluation, the patient was complaining of vaginal pain. Her external genitalia had no lesions or discharge. 2325: I discussed the patient's case with Dr. Matamoros, and she is going to evaluate the patient. Medical Decision I reviewed the patient's past medical history, medications, and the nursing notes as described above. Differential diagnoses include: UTI, urinary retention, pyelonephritis, renal stone, diverticulitis, constipation, colitis The patient is a 77-year-old woman with a past medical history of schizophrenia and chronic lower abdominal pain and recurrent UTIs followed by urology who presents emergency Department with lower abdominal pain and burning with urination per history of present illness. On arrival the patient is no acute distress, afebrile stable vital signs. On exam the patient has mild suprapubic tenderness to palpation but no peritoneal signs. WBC 12, which could be related to her current prednisone. Chemistry consistent with mild dehydration with BUN/creatinine > 20. POC lactate 2.6 on arrival prior to IV fluids. Given patient's clinically dry appearance lactate repeated after 2L IV fluids with POC lactate increased to 3.1, serum lactate performed to r/o erroneous lab result but again confirmed persistent elevation. Patient c/o of persistent lower abdominal pain despite fentanyl. Given Tamulosin for possible bladder spasm. Subsequently, patient reassessed and now complaining more of vaginal pain and burning, external exam demonstrates dry mucosa without any concerning lesions. Given that the patient did arrive with tachycardia the 130s and with elevated WBC, the patients meets 2 out of 4 SIRS criteria. While UA, CXR and CT abd/pel without any infectious source blood cx sent to r/o bacteremia. Will treat empirically with Vancomycin and Zosyn. Case was d/[place]mahon, [facility], and admitting resident, Dr. Matamoros, who request pelvic exam to r/o process/source. Pelvic exam demonstrates only dry/friable mucosa without discharge or lesions. No CMT or adnexal tenderness. Hospitalist will evaluate the patient for admission. Medication Reconcilliation Current Medication List: was personally reviewed by me Blood Pressure Screening Patient's blood pressure: Elevated blood pressure Blood pressure disposition: Elevated BP felt to be situational Consults Time Called: 5 Consulting Physician: Dr. Matamoros Returned Call: [phone] I discussed the patient's case with Dr. Matamoros, and she is going to evaluate the patient. Impression Primary Impression: Suprapubic abdominal pain Additional Impressions: Leukocytosis, unspecified Elevated lactic acid level Scribe Attestation The scribe's documentation has been prepared under my direction and personally reviewed by me in its entirety. I confirm that the note above accurately reflects all work, treatment, procedures, and medical decision making performed by me. Departure Information Referrals Dwayne Murray M.D. (PCP) Patient Instructions My [facility] Problem Qualifiers
[2017-10-08] MEDS ORDERED: LEVO1TAB35 PO (16:54)
[2017-10-08] MEDS ORDERED: PRED20TA PO (17:00)
[2017-10-08] MEDS ORDERED: CLOB-77 TOP (17:02)
[2017-10-08 17:42] LABS: BASO % 0.1 %; BASO ABS # 0.01 K/uL (0-0.2); HEMATOCRIT 41.4 % (37-47); IG# 0.12 K/uL (0.00-0.02); LYMPH % 12.9 %; MEAN CELL VOLUME 89.6 fL (80-100); MEAN CORPUSCULAR HEMOGLOBIN 30.3 pg (25-34); MEAN CORPUSCULAR HGB CONC 33.8 g/dl (32-36); MEAN PLATELET VOLUME 10.6 fL (7.4-10.4); MONO % 9.1 %; MONO ABS # 1.13 K/uL (0.11-0.59); NEUT % 76.9 %; NEUT ABS # 9.57 K/uL (1.4-6.5); PLATELET COUNT 222 K/uL (130-400); RED CELL DISTRIBUTION WIDTH SD 45.6 fL (36.4-46.3); WHITE BLOOD COUNT 12.43 K/uL (4.8-10.8)
[2017-10-08 18:03] LABS: ALBUMIN 3.5 gm/dl (3.4-5.0); CALCIUM 8.7 mg/dl (8.5-10.1); CREATININE 1.13 mg/dl (0.60-1.20); POTASSIUM 3.3 mmol/L (3.5-5.1); TOTAL PROTEIN 6.9 gm/dl (6.4-8.2)
[2017-10-08] MEDS ORDERED: FENTANYL CITRATE INJ 50 MCG/1 ML 2 ML VIAL IV STA ×2 (18:15→23:44)
[2017-10-08] MEDS ORDERED: OPTIRAY 320 IV PRN (18:30)
[2017-10-08] MEDS ORDERED: FENTANYL CITRATE INJ 50 MCG/1 ML 2 ML VIAL IV ONE (19:00)
--- NOTE | 2017-10-08 19:35 | DIAGNOSTIC IMAGING REPORT ---
CT SCAN OF THE ABDOMEN AND PELVIS WITH IV CONTRAST CLINICAL HISTORY: Lower abdominal pain. COMPARISON STUDY: Abdominal CT dated 04/18/2016. TECHNIQUE: Following the IV administration of 115 cc of Optiray 320, CT scan of the abdomen and pelvis is performed from the lung bases to the proximal femora. Images are reviewed in the axial, sagittal, and coronal planes. IV contrast was administered without complication. The examination is degraded by streak artifact from the patient's arms which could not be elevated above the abdomen, as well as by motion artifact. A dose lowering protocol was utilized adhering to the principles of ALARA. CT DOSE: 471.59 mGy.cm FINDINGS: Lung bases: The heart is top normal in size and without pericardial effusion. The lung bases are clear noting dependent atelectasis. Liver: The contrast-enhanced liver is normal in size, contour, and attenuation. There are small calcified hepatic granulomas. There is no intrahepatic biliary ductal dilatation. The hepatic veins and portal veins are patent. Gallbladder: Unremarkable. Spleen: Normal in size and attenuation. There are small calcified splenic granulomas. Pancreas: Atrophic. Adrenal glands: A 1.3 cm right adrenal nodule is unchanged from 2014. This was previously shown to represent a fat-containing adenoma. The left adrenal gland is normal in appearance. Kidneys: The contrast enhanced kidneys history cortical atrophy and are without hydronephrosis. The kidneys enhance symmetrically. A 3.4 cm cyst is noted on the right. Additional subcentimeter cortical hypodensities also likely represent cysts but are too small for definitive characterization. Abdominal vasculature: The abdominal aorta is normal in course and caliber noting moderate atherosclerotic calcification. Bowel: The small bowel and colon are normal in course and caliber. There is mild to moderate colonic fecal retention. The appendix is well-visualized and normal. Peritoneum: There is no intraperitoneal free air or abdominal ascites. There is a small fat-containing umbilical hernia. Lymphadenopathy: None. Pelvic viscera: The bladder is normal as visualized. The uterus is surgically absent. No adnexal lesion is seen. Numerous calcified phleboliths are identified in the pelvis. Skeletal structures: The skeletal structures are osteopenic. No lytic or blastic lesions are seen. There is mild to moderate lumbosacral spondylosis. A minimal chronic superior endplate compression deformity is again noted in L4. IMPRESSION: 1. There are no acute infectious or inflammatory findings in the abdomen or pelvis. 2. Chronic findings as above. Electronically signed by: Nelson Peters M.D. 10/08/2017 7:34 PM Dictated Date/Time: 10/08/2017 7:27 PM
[2017-10-08] MEDS ORDERED: ACETAMINOPHEN 500 MG TAB PO STA (20:01)
[2017-10-08] MEDS ORDERED: TAMSULOSIN HCL 0.4 MG CAP PO ONE (20:15)
[2017-10-08] MEDS ORDERED: PERPHENAZINE 2 MG TAB PO STA (22:05)
[2017-10-08] MEDS ORDERED: LORAZEPAM 0.5 MG TAB PO STA (22:07)
[2017-10-08] MEDS ORDERED: VANCOMYCIN INJ 1,300 MG in SODIUM CHLORIDE 0.9% 500ML 500 ML IV STA (23:16)
[2017-10-08] MEDS ORDERED: PIPERACILLIN/TAZOBACTAM 4.5 GM/100ML D5W IV STA (23:16)
[2017-10-08] MEDS ORDERED: VANCOMYCIN INJ 1,250 MG in SODIUM CHLORIDE 0.9% 250ML 250 ML IV STA (23:29)
--- NOTE | 2017-10-08 23:57 | History and Physical ---
History & Physical Date & Time of Service: Oct 08, 2017 at 23:56 Chief Complaint: Extreme Pain Bladder/Stomach Primary Care Physician: Dwayne Murray M.D. History of Present Illness Source: patient 77 year old female with schizophrenia and interstitial cystitis presents to ED with pelvic pain. Lives in [facility], and was brought in with patient claiming to be in agony. When asked where the pain is, she states in her bottom "from where she pees". Difficult to ascertain further information including classification of symptoms or associated symptoms, as patient alternates from not responding to stating "I don't know" or acting otherwise agitated. Unable to attain ROS Past Medical/Surgical History Medical Problems: (1) Hyperlipidemia Status: Chronic (2) Schizophrenia Status: Chronic (3) Tremor Status: Chronic Surgical Problems: (1) H/O: hysterectomy Status: Resolved Family History Asthma Bleeding disorder Depression Kidney disease Seizures Unable to ascertain Social History Smoking Status: Never Smoker Smokeless Tobacco Use: No Alcohol Use: none Drug Use: none Marital Status: single Housing status: assisted living Occupational Status: retired Immunizations History of Influenza Vaccine: Unknown History of Tetanus Vaccine?: Unknown History of Pneumococcal: Unknown History of Hepatitis B Vaccine: Unknown Multi-Drug Resistant Organisms History of MDRO: No Allergies Coded Allergies: Morphine (Verified Adverse Reaction, Unknown, Nausea., 10/08/17) Reported by PT. Home Medications Scheduled Atorvastatin (Lipitor), 80 MG PO DAILY Diphenhydramine Hcl (Diphenhist), 25 MG PO HS Pentosan Polysulfate Sodium (Elmiron), 100 MG PO TID Perphenazine (Trilafon), 4 MG PO TID Phenazopyridine HCl (Pyridium), 200 MG PO TID Phenazopyridine Hcl (Azo Tabs), 1 TAB PO BID Polyethylene (Polyethylene Glycol 3350), 17 GM PO DAILY Solifenacin Succinate (Vesicare), 5 MG PO DAILY Scheduled PRN Acetaminophen (Tylenol), 500-1,000 MG PO TID PRN for Pain or Fever Clobetasol Propionate (Temovate), 1 APPLN TOP DAILY PRN for Itching Dextromethorphan-Guaifenesin (Tussin Dm), 10 ML PO HS PRN for Cough Ibuprofen (Ibuprofen), 600 MG PO TID PRN for Pain Tramadol (Ultram), 50 MG PO Q8H PRN for Pain Physical Exam Vital Signs Date Time Temp Pulse Resp B/P (MAP) Pulse Ox O2 Delivery O2 Flow Rate FiO2 10/08/17 23:28 107 18 130/77 98 Room Air 10/08/17 21:54 74 18 165/83 96 Room Air 10/08/17 19:58 91 22 98 10/08/17 19:57 130/99 10/08/17 19:43 102 29 90 10/08/17 19:29 80 18 164/112 96 Room Air 10/08/17 19:28 86 31 97 10/08/17 19:10 174/87 10/08/17 18:58 30 10/08/17 18:43 24 10/08/17 18:35 70 20 10/08/17 18:28 78 23 10/08/17 18:13 73 15 10/08/17 17:58 69 25 10/08/17 17:43 70 13 10/08/17 17:35 96 10/08/17 16:24 36.4 120 18 126/69 96 Room Air General Appearance: WD/WN, + mild distress (intermittently) Head: normocephalic, atraumatic Eyes: normal inspection ENT: hearing grossly normal Neck: supple Respiratory/Chest: normal breath sounds, no respiratory distress, no accessory muscle use Cardiovascular: regular rate, rhythm, no murmur Abdomen/GI: normal bowel sounds, soft, + tenderness (on palpation of mons and right groin) Back: normal inspection, no CVA tenderness Extremities/Musculoskelatal: normal inspection, no pedal edema Neurologic/Psych: alert, + pertinent finding (agitated) Skin: normal color, warm/dry, no rash Diagnostics Laboratory Results Results Past 24 Hours Test 10/08/17 17:09 10/08/17 17:15 10/08/17 18:44 10/08/17 20:13 Range/Units Urine Color YELLOW Urine Appearance CLOUDY CLEAR Urine pH 5.0 4.5-7.5 Urine Specific [place] 1.024 1.000-1.030 Urine Protein TRACE NEG Urine Glucose (UA) NEG NEG Urine Ketones TRACE NEG Urine Occult Blood NEG NEG Urine Nitrite NEG NEG Urine Bilirubin NEG NEG Urine Urobilinogen NEG NEG Urine Leukocyte Esterase NEG NEG Urine WBC (Auto) 1-5 0-5 /hpf Urine RBC (Auto) 0-4 0-4 /hpf Urine Hyaline Casts (Auto) 5-10 0-5 /lpf Urine Epithelial Cells (Auto) >30 0-5 /lpf Urine Bacteria (Auto) NEG NEG Urine Crystals CALCIUM OXALATE NONE PRSENT Urine Pathogenic Casts 1-5 WBC CASTS 0 /lpf White Blood Count 12.43 4.8-10.8 K/uL Red Blood Count 4.62 4.2-5.4 M/uL Hemoglobin 14.0 12.0-16.0 g/dL Hematocrit 41.4 37-47 % Mean Corpuscular Volume 89.6 80-100 fL Mean Corpuscular Hemoglobin 30.3 25-34 pg Mean Corpuscular Hemoglobin Concent 33.8 32-36 g/dl Platelet Count 222 130-400 K/uL Mean Platelet Volume 10.6 7.4-10.4 fL Neutrophils (%) (Auto) 76.9 % Lymphocytes (%) (Auto) 12.9 % Monocytes (%) (Auto) 9.1 % Eosinophils (%) (Auto) 0.0 % Basophils (%) (Auto) 0.1 % Neutrophils # (Auto) 9.57 1.4-6.5 K/uL Lymphocytes # (Auto) 1.60 1.2-3.4 K/uL Monocytes # (Auto) 1.13 0.11-0.59 K/uL Eosinophils # (Auto) 0.00 0-0.5 K/uL Basophils # (Auto) 0.01 0-0.2 K/uL RDW Standard Deviation 45.6 36.4-46.3 fL RDW Coefficient of Variation 14.0 11.5-14.5 % Immature Granulocyte % (Auto) 1.0 % Immature Granulocyte # (Auto) 0.12 0.00-0.02 K/uL Sodium Level 136 136-145 mmol/L Potassium Level 3.3 3.5-5.1 mmol/L Chloride Level 102 98-107 mmol/L Carbon Dioxide Level 26 21-32 mmol/L Anion Gap 8.0 3-11 mmol/L Blood Urea Nitrogen 30 7-18 mg/dl Creatinine 1.13 0.60-1.20 mg/dl Est Creatinine Clear Calc Drug Dose 36.4 ml/min Estimated GFR () 54.7 Estimated GFR (Non- 47.2 BUN/Creatinine Ratio 26.9 10-20 Random Glucose 156 70-99 mg/dl Calcium Level 8.7 8.5-10.1 mg/dl Total Bilirubin 1.7 0.2-1 mg/dl Direct Bilirubin 0.4 0-0.2 mg/dl Aspartate Amino Transf (AST/SGOT) 47 15-37 U/L Alanine Aminotransferase (ALT/SGPT) 45 12-78 U/L Alkaline Phosphatase 76 45-117 U/L Total Protein 6.9 6.4-8.2 gm/dl Albumin 3.5 3.4-5.0 gm/dl Lipase 167 73-393 U/L Bedside Lactic Acid Venous 2.66 3.12 0.90-1.70 mmol/L Test 10/08/17 22:36 Range/Units Lactic Acid Level 2.7 0.4-2.0 mmol/L Microbiology Results 10/08/17 Blood Culture, Received Pending 10/08/17 Blood Culture, Received Pending Impression Assessment and Plan 76 year old female with schizophrenia and interstitial cystitis admitted with pelvic pain Pelvic pain - No source found on clinical exam or labs/CT imaging - Pelvic workup ordered and negative, except culture pending - UA unremarkable for infection - Likely flare of interstitial cystitis - Multiple pain medications provided, but patient is hyper-focused on pain - On appropriate medication for such, Elmiron to be continued on admission Agitation - Sitter in room - One dose of IM Haldol given - Psych consulted for med reconciliation/modification Schizophrenia - Continue home regimen HLD - Continue atorvastatin VTE ppx - SCDs FULL CODE Attending addendum: I have physically seen this patient, have supervised the medical residents activities, and agree with the H&P unless as otherwise noted. Assessment and Plan: Interstitial cystitis/pelvic pain-- Continue current course of medications. Schizophrenia/agitation-- Sitter in room since patient is agitated Consult psychiatry. Level of Care Med/Surg Advanced Directives Existing Health Care Proxy: No Resuscitation Status FULL RESUSCITATION VTE Prophylaxis VTE Risk Assessment Done? Y/N: Yes Risk Level: Moderate Given or contraindicated: SCD's Resident Tracking Resident Involvement: Resident Care Provided Care Provided: Adult Hospital Medicine
[2017-10-09] MEDS ORDERED: ONDANSETRON INJ 2 MG/ML 2 ML VIAL IV PRN (03:00)
[2017-10-09] MEDS ORDERED: POLYETHYLENE (MIRALAX) 17 GM PACK PO PRN (03:00)
[2017-10-09] MEDS ORDERED: MAGNESIUM HYDROXIDE SUSP 30 ML UDC PO PRN (03:00)
[2017-10-09] MEDS ORDERED: GUAIFENESIN/DEXTROM SYRUP 100MG/10MG 5ML UDC PO PRN (03:00)
[2017-10-09] MEDS ORDERED: ALUMINUM/MAGNESIUM/SIMETH (MAALOX MAX) 30 ML UDC PO PRN (03:00)
[2017-10-09] MEDS ORDERED: ACETAMINOPHEN 325 MG TAB PO PRN (03:00)
[2017-10-09] MEDS ORDERED: IV FLUIDS COMPLETED PRN (03:30)
[2017-10-09] MEDS ORDERED: SODIUM CHLORIDE 0.9% 1000ML 1,000 ML IV SCH (04:00)
[2017-10-09 04:04] VITALS: BP 160/78; PULSE 83; TEMP 36.4; Ht 154.9 cm; Wt 63.8 kg
[2017-10-09 04:19] VITALS: O2SAT 100
[2017-10-09] MEDS ORDERED: KETOROLAC TROMETHAMINE 15 MG/ML VIAL IV. STA (04:27)
[2017-10-09] MEDS ORDERED: POTASSIUM CHLORIDE 20 MEQ TABCR PO STA (04:28)
[2017-10-09] MEDS: IBUPROFEN 600 MG TAB PO PRN ×2 (04:29→19:03)
[2017-10-09] MEDS ORDERED: HALOPERIDOL LACTATE 5 MG/ML 1 ML VIAL IM ONE (05:45)
[2017-10-09 08:00] VITALS: BP 95/56; PULSE 60; TEMP 36.8; O2SAT 97
[2017-10-09] MEDS: VESICARE~ORDER AWAITING ACTION SCH ×2 (08:00→16:00)
[2017-10-09 09:25] LABS: CALCIUM 7.3 mg/dl (8.5-10.1); CREATININE 0.7 mg/dl (0.60-1.20); POTASSIUM 3.1 mmol/L (3.5-5.1)
[2017-10-09 09:26] LABS: BASO % 0.1 %; BASO ABS # 0.01 K/uL (0-0.2); EOS % 0.4 %; EOS ABS # 0.05 K/uL (0-0.5); HEMATOCRIT 32.3 % (37-47); HEMOGLOBIN 11.1 g/dL (12.0-16.0); IG# 0.08 K/uL (0.00-0.02); LYMPH % 25.7 %; LYMPH ABS # 3.17 K/uL (1.2-3.4); MEAN CELL VOLUME 89.2 fL (80-100); MEAN CORPUSCULAR HEMOGLOBIN 30.7 pg (25-34); MEAN CORPUSCULAR HGB CONC 34.4 g/dl (32-36); MEAN PLATELET VOLUME 10.1 fL (7.4-10.4); MONO ABS # 1.48 K/uL (0.11-0.59); NEUT % 61.2 %; NEUT ABS # 7.55 K/uL (1.4-6.5); PLATELET COUNT 156 K/uL (130-400); RED CELL DISTRIBUTION WIDTH CV 13.7 % (11.5-14.5); RED CELL DISTRIBUTION WIDTH SD 44.5 fL (36.4-46.3); WHITE BLOOD COUNT 12.34 K/uL (4.8-10.8)
[2017-10-09] MEDS ORDERED: SODIUM CHLORIDE 0.9% 500ML 500 ML IV SCH (10:00)
[2017-10-09] MEDS ORDERED: POTASSIUM CHLORIDE 10 MEQ TABCR PO ONE (10:00)
[2017-10-09] MEDS: ATORVASTATIN 40 MG TAB PO SCH (10:35)
[2017-10-09] MEDS: PHENAZOPYRIDINE HCL 200 MG TAB PO SCH ×3 (10:36→20:19)
[2017-10-09] MEDS: PERPHENAZINE 2 MG TAB PO SCH ×3 (10:36→20:20)
[2017-10-09] MEDS: PENTOSAN POLYSULFATE SODIUM 100 MG CAP PO SCH ×3 (10:36→20:19)
--- NOTE | 2017-10-09 10:49 | DIAGNOSTIC IMAGING REPORT ---
CHEST ONE VIEW PORTABLE CLINICAL HISTORY: . PNEUMONIA. COMPARISON STUDY: 04/18/2016 FINDINGS: The heart is borderline enlarged. There is diffuse prominence of interstitial markings a finding which may be accentuated due to a suboptimal inspiration. There is no lobar consolidation. There are no pleural effusions.[ IMPRESSION: Mild elevation of the interstitium, a finding which may in part be secondary to suboptimal inspiration. No evidence of focal pulmonary consolidation Electronically signed by: Sergo Shields M.D. 10/09/2017 10:48 AM Dictated Date/Time: 10/09/2017 10:47 AM
[2017-10-09] MEDS: NSS + 20MEQ KCL 1000ML 1,000 ML IV SCH ×2 (11:28→19:03)
--- NOTE | 2017-10-09 12:44 | Psychiatric Consultation ---
Consultation Date of Consultation Oct 09, 2017. Identifying Data 77 yo female with knows schizophrenia, admitted medically with abd pain likely in the setting of interstitial cystitis. Consult requested due to agitation, med management. Information is gathered from the patient and the electronic medical record. Chief Complaint None stated History of Present Illness The patient is a 77-year-old woman with known interstitial cystitis and schizophrenia, who presented to the emergency department worsening abdominal pain. Initial workup was negative for other sources but due to her persistent pain and agitation she was admitted for management. We are consulted to evaluate her mental condition as she has a schizophrenic and has been agitated. At the time I see the patient she is poorly cooperative. She refuses to answer some questions and at one point rolls over and puts her back to me. If I could show her verbally and physically she will answer some questions. I'm not sure that the information is reliable however. She says that she currently does not see a psychiatrist and she does not have anybody to help her. She is aware that she is in the hospital but thought it was the year 2016. She will not answer any further orientation questions. She does not want to answer questions and frequently says "I don't know". The patient had been seen on consult by our group in 2015. At that time she had been seeing Dr. Hamlin at [facility]. At that time her medications had been switched from Prolixin to Thorazine and Trilafon had been started. She had some degree of delirium at that time and her only recommendations were to continue her medications and reduce any deliria genic medications. Past Psychiatric History Current OP Treatment: psychiatrist (the patient denies but has a history of having been seen at [facility]) Prior Psych Hospitalizations: other ([facility]) Suicide Attempts: No (per past records) Past Medical/Surgical History (1) Interstitial cystitis Allergies Allergies: Coded Allergies: Morphine (Verified Adverse Reaction, Unknown, Nausea., 10/08/17) Reported by PT. Home Medications Scheduled Atorvastatin (Lipitor), 80 MG PO DAILY Diphenhydramine Hcl (Diphenhist), 25 MG PO HS Levofloxacin (Levaquin), 750 MG PO QPM Pentosan Polysulfate Sodium (Elmiron), 100 MG PO TID Perphenazine (Trilafon), 4 MG PO TID Phenazopyridine HCl (Pyridium), 200 MG PO TID Polyethylene (Polyethylene Glycol 3350), 17 GM PO DAILY Prednisone (Prednisone), 1 DOSE PO UD Solifenacin Succinate (Vesicare), 5 MG PO DAILY Scheduled PRN Acetaminophen (Tylenol), 500-1,000 MG PO TID PRN for Pain or Fever Clobetasol Propionate (Temovate), 1 APPLN TOP DAILY PRN for Itching Dextromethorphan-Guaifenesin (Tussin Dm), 10 ML PO HS PRN for Cough Dextromethorphan-Phenylephrine (Vicks Dayquil Cold & Flu), 30 ML PO Q4 PRN for Cold Symptoms Ibuprofen (Ibuprofen), 600 MG PO TID PRN for Pain Family History Asthma Bleeding disorder Depression Kidney disease Seizures Alcohol Use Patient uncooperative with evaluation Smoking Use Smoking Status: Never Smoker Personal History Lives in: [place] Relationship History: Children: son Spiritual Affiliation: [facility] Review of Systems Refuses to participate in review of systems Examination Vital Signs Vital Signs Past 12 Hours Date Time Temp Pulse Resp B/P (MAP) Pulse Ox O2 Delivery O2 Flow Rate FiO2 10/09/17 08:00 36.8 60 18 95/56 (69) 97 Nasal Cannula 1.0 10/09/17 08:00 97 Nasal Cannula 1.0 10/09/17 04:19 100 Room Air 10/09/17 04:04 36.4 83 18 160/78 10/09/17 03:23 65 18 117/56 100 10/09/17 02:36 98 Nasal Cannula 3.0 10/09/17 02:36 59 16 105/56 98 Nasal Cannula 3.0 10/09/17 02:35 84 Room Air 10/09/17 01:33 67 18 134/50 98 Room Air Laboratory Results Last 24 Hours Test 10/08/17 17:09 10/08/17 17:15 10/08/17 18:44 10/08/17 20:13 Urine Color YELLOW Urine Appearance CLOUDY Urine pH 5.0 Urine Specific [place] 1.024 Urine Protein TRACE Urine Glucose (UA) NEG Urine Ketones TRACE Urine Occult Blood NEG Urine Nitrite NEG Urine Bilirubin NEG Urine Urobilinogen NEG Urine Leukocyte Esterase NEG Urine WBC (Auto) 1-5 /hpf Urine RBC (Auto) 0-4 /hpf Urine Hyaline Casts (Auto) 5-10 /lpf Urine Epithelial Cells (Auto) >30 /lpf Urine Bacteria (Auto) NEG Urine Crystals CALCIUM OXALATE Urine Pathogenic Casts 1-5 WBC CASTS /lpf White Blood Count 12.43 K/uL Red Blood Count 4.62 M/uL Hemoglobin 14.0 g/dL Hematocrit 41.4 % Mean Corpuscular Volume 89.6 fL Mean Corpuscular Hemoglobin 30.3 pg Mean Corpuscular Hemoglobin Concent 33.8 g/dl Platelet Count 222 K/uL Mean Platelet Volume 10.6 fL Neutrophils (%) (Auto) 76.9 % Lymphocytes (%) (Auto) 12.9 % Monocytes (%) (Auto) 9.1 % Eosinophils (%) (Auto) 0.0 % Basophils (%) (Auto) 0.1 % Neutrophils # (Auto) 9.57 K/uL Lymphocytes # (Auto) 1.60 K/uL Monocytes # (Auto) 1.13 K/uL Eosinophils # (Auto) 0.00 K/uL Basophils # (Auto) 0.01 K/uL RDW Standard Deviation 45.6 fL RDW Coefficient of Variation 14.0 % Immature Granulocyte % (Auto) 1.0 % Immature Granulocyte # (Auto) 0.12 K/uL Sodium Level 136 mmol/L Potassium Level 3.3 mmol/L Chloride Level 102 mmol/L Carbon Dioxide Level 26 mmol/L Anion Gap 8.0 mmol/L Blood Urea Nitrogen 30 mg/dl Creatinine 1.13 mg/dl Est Creatinine Clear Calc Drug Dose 36.4 ml/min Estimated GFR () 54.7 Estimated GFR (Non- 47.2 BUN/Creatinine Ratio 26.9 Random Glucose 156 mg/dl Calcium Level 8.7 mg/dl Total Bilirubin 1.7 mg/dl Direct Bilirubin 0.4 mg/dl Aspartate Amino Transf (AST/SGOT) 47 U/L Alanine Aminotransferase (ALT/SGPT) 45 U/L Alkaline Phosphatase 76 U/L Total Protein 6.9 gm/dl Albumin 3.5 gm/dl Lipase 167 U/L Bedside Lactic Acid Venous 2.66 mmol/L 3.12 mmol/L Test 10/08/17 22:36 10/09/17 00:46 10/09/17 08:53 10/09/17 10:04 Lactic Acid Level 2.7 mmol/L 1.0 mmol/L White Blood Count 12.34 K/uL Red Blood Count 3.62 M/uL Hemoglobin 11.1 g/dL Hematocrit 32.3 % Mean Corpuscular Volume 89.2 fL Mean Corpuscular Hemoglobin 30.7 pg Mean Corpuscular Hemoglobin Concent 34.4 g/dl Platelet Count 156 K/uL Mean Platelet Volume 10.1 fL Neutrophils (%) (Auto) 61.2 % Lymphocytes (%) (Auto) 25.7 % Monocytes (%) (Auto) 12.0 % Eosinophils (%) (Auto) 0.4 % Basophils (%) (Auto) 0.1 % Neutrophils # (Auto) 7.55 K/uL Lymphocytes # (Auto) 3.17 K/uL Monocytes # (Auto) 1.48 K/uL Eosinophils # (Auto) 0.05 K/uL Basophils # (Auto) 0.01 K/uL RDW Standard Deviation 44.5 fL RDW Coefficient of Variation 13.7 % Immature Granulocyte % (Auto) 0.6 % Immature Granulocyte # (Auto) 0.08 K/uL Sodium Level 140 mmol/L Potassium Level 3.1 mmol/L Chloride Level 110 mmol/L Carbon Dioxide Level 23 mmol/L Anion Gap 7.0 mmol/L Blood Urea Nitrogen 21 mg/dl Creatinine 0.70 mg/dl Est Creatinine Clear Calc Drug Dose 58.5 ml/min Estimated GFR () 97.5 Estimated GFR (Non- 84.2 BUN/Creatinine Ratio 30.2 Random Glucose 94 mg/dl Calcium Level 7.3 mg/dl Test 10/09/17 10:16 Procalcitonin < 0.05 ng/ml Mental Examination During interview pt is: uncooperative Appearance: disheveled Eye contact is: poor Motor behavior is: no abnormal motor movements Speech: other (minimal, using very few words) Affect: irritable Mood is: irritable Thought process: concrete Suicidal thought are: denied Homicidal thoughts are: denied Hallucinations: denies auditory, denies visual Intelligence estimated to be: below average Insight: impaired Judgement: impaired Impression / Recommendations Impression 77-year-old woman with schizophrenia admitted medically with likely interstitial cystitis and abdominal pain. We are consulted to evaluate mental status, agitation and medications. Unfortunately, the patient is less cooperative today. She denies that she is in services however had previously been seen by [facility]. Will attempt to get her to sign a release of information and or get supplemental information from contacts listed in the chart. Her medications at been ordered according to the med rec. We will have the liaison nurse attempted to get as much information as possible from as many people as we can find. It would be helpful if we can get a list of medications from [facility] if she is still in treatment there. At this point I have no recommendations for medications. I would continue the Trilafon until we can get her information. Recommendations (1) Schizophrenia 10/09 - Uncooperative with interview Liaison nurse will attempt to get supplemental from contacts listed in the chart - Liaison will also attempt to have her sign releases of information to [facility] in the event she is still seen there, and obtain a med list- Dr. Isabella Fofana has personally been involved in the review of this case and development of recommendations.
--- NOTE | 2017-10-09 13:48 | Hospitalist Progress Note ---
Hospitalist Progress Note Date of Service Oct 09, 2017. (Elva Boogie ., PARI) Subjective Pt evaluation today including: conversation w/ patient, physical exam, chart review, lab review, review of inpatient medication list Ms. Ring is somnolent though she will open her eyes and is oriented when questioned. She denies any pain or discomfort ROS Constitutional: no chills, aches, sweats or fever Respiratory: no sob,cough, sputum, or wheezing Cardiac: no chest pain, palpitations, edema, orthopnea or lightheadedness GI: no abdominal pain, nausea, vomiting, diarrhea or constipation : no dysuria or hesitancy Extremities: no joint pain or weakness Skin: no rash All other systems reviewed and negative (Elva Boogie .PARI) Medications Medications Administered Medications (Trade) Dose Ordered Sig/Megan Route Start Time Stop Time Status Last Admin Dose Admin Sodium Chloride 1,000 ml @ 999 mls/hr Q1H1M STAT IV 10/08/17 16:45 10/08/17 17:45 DC 10/08/17 17:12 999 MLS/HR Ketorolac Tromethamine (Toradol Inj) 15 mg NOW STAT IV 10/08/17 16:45 10/08/17 16:47 DC 10/08/17 17:13 15 MG Ondansetron HCl (Zofran Inj) 4 mg NOW STAT IV 10/08/17 16:45 10/08/17 16:47 DC 10/08/17 17:12 4 MG Sodium Chloride 1,000 ml @ 999 mls/hr Q1H1M STAT IV 10/08/17 18:15 10/08/17 19:15 DC 10/08/17 19:56 999 MLS/HR Fentanyl Citrate (Fentanyl Inj) 50 mcg NOW STAT IV 10/08/17 18:15 10/08/17 18:18 DC 10/08/17 18:27 50 MCG Fentanyl Citrate (Fentanyl Inj) 100 mcg NOW ONCE IV 10/08/17 19:00 10/08/17 19:01 DC 10/08/17 19:05 100 MCG Acetaminophen (Tylenol Tab) 1,000 mg NOW STAT PO 10/08/17 20:01 10/08/17 20:03 DC 10/08/17 20:37 1,000 MG Tamsulosin HCl (Flomax Cap) 0.4 mg NOW ONCE PO 10/08/17 20:15 10/08/17 20:16 DC 10/08/17 20:37 0.4 MG Perphenazine (Trilafon Tab) 4 mg NOW STAT PO 10/08/17 22:05 10/08/17 22:08 DC 10/08/17 22:20 4 MG Lorazepam (Ativan Tab) 0.5 mg NOW STAT PO 10/08/17 22:07 10/08/17 22:09 DC 10/08/17 22:20 0.5 MG Piperacillin Sod/ Tazobactam Sod (Zosyn Iv) 4.5 gm NOW STAT IV 10/08/17 23:16 10/08/17 23:19 DC 10/08/17 23:36 4.5 GM Sodium Chloride 1,000 ml @ 125 mls/hr Q8H STAT IV 10/08/17 23:18 10/09/17 10:00 DC 10/08/17 23:33 125 MLS/HR Vancomycin HCl 1250 mg/Sodium Chloride 275 ml @ 125 mls/hr NOW STAT IV 10/08/17 23:29 10/09/17 01:40 DC 10/09/17 00:19 125 MLS/HR Fentanyl Citrate (Fentanyl Inj) 50 mcg NOW STAT IV 10/08/17 23:44 10/08/17 23:45 DC 10/08/17 23:53 50 MCG Atorvastatin Calcium (Lipitor Tab) 80 mg DAILY PO 10/09/17 08:00 11/08/17 08:59 10/09/17 10:35 80 MG Ibuprofen (Motrin Tab) 600 mg TID PRN PO 10/09/17 03:00 11/08/17 02:59 10/09/17 04:29 600 MG Perphenazine (Trilafon Tab) 4 mg TID PO 10/09/17 08:00 11/08/17 08:59 10/09/17 10:36 4 MG Phenazopyridine HCl (Pyridium Tab) 200 mg TID PO 10/09/17 08:00 11/08/17 08:59 10/09/17 10:36 200 MG Pentosan Polysulfate Sodium (Elmiron) 100 mg TID PO 10/09/17 08:00 11/08/17 08:59 10/09/17 10:36 100 MG Sodium Chloride 1,000 ml @ 100 mls/hr Q10H IV 10/09/17 04:00 10/09/17 10:11 DC 10/09/17 04:29 100 MLS/HR Ketorolac Tromethamine (Toradol Inj) 15 mg NOW STAT IV. 10/09/17 04:27 10/09/17 04:32 DC 10/09/17 04:37 15 MG Potassium Chloride (Klor-Con Tab) 40 meq NOW STAT PO 10/09/17 04:28 10/09/17 04:32 DC 10/09/17 04:49 40 MEQ Haloperidol Lactate (Haldol Inj) 5 mg NOW ONCE IM 10/09/17 05:45 10/09/17 05:50 DC 10/09/17 06:05 5 MG Potassium Chloride (Klor-Con M10) 40 meq NOW ONCE PO 10/09/17 10:00 10/09/17 10:11 DC 10/09/17 10:35 40 MEQ Potassium Chloride/Sodium Chloride 1,000 ml @ 125 mls/hr Q8H IV 10/09/17 10:30 11/08/17 10:29 10/09/17 11:28 125 MLS/HR Sodium Chloride 500 ml @ 999 mls/hr Q31M IV 10/09/17 10:00 10/09/17 10:30 DC 10/09/17 10:38 999 MLS/HR (Elva Boogie, PARI) Objective Vital Signs Date Time Temp Pulse Resp B/P (MAP) Pulse Ox O2 Delivery O2 Flow Rate FiO2 10/09/17 08:00 36.8 60 18 95/56 (69) 97 Nasal Cannula 1.0 10/09/17 08:00 97 Nasal Cannula 1.0 10/09/17 04:19 100 Room Air 10/09/17 04:04 36.4 83 18 160/78 10/09/17 03:23 65 18 117/56 100 10/09/17 02:36 98 Nasal Cannula 3.0 10/09/17 02:36 59 16 105/56 98 Nasal Cannula 3.0 10/09/17 02:35 84 Room Air 10/09/17 01:33 67 18 134/50 98 Room Air 10/09/17 00:22 98 18 127/82 93 Room Air 10/08/17 23:28 107 18 130/77 98 Room Air 10/08/17 21:54 74 18 165/83 96 Room Air 10/08/17 19:58 91 22 98 10/08/17 19:57 130/99 10/08/17 19:43 102 29 90 10/08/17 19:29 80 18 164/112 96 Room Air 10/08/17 19:28 86 31 97 10/08/17 19:10 174/87 10/08/17 18:58 30 10/08/17 18:43 24 10/08/17 18:35 70 20 10/08/17 18:28 78 23 10/08/17 18:13 73 15 10/08/17 17:58 69 25 10/08/17 17:43 70 13 10/08/17 17:35 96 10/08/17 16:24 36.4 120 18 126/69 96 Room Air (Elva Boogie, PARI) Physical Exam Notes: General: no distress Eyes: normal inspection, PERLL Respiratory: chest non tender, clear to auscultation, normal breath sounds, no respiratory distress, no accessory muscle use Cardiac: regular rate and rhythm, no rub or gallop, no murmur, no edema, no jvd GI/: active bowel sounds, no abd pain or tenderness, soft, non distended Extremities: normal range of motion, normal strength, non tender Neuro/Psych: drowsy and oriented x 3, Skin: normal color, dry (Elva Boogie, PARI) Laboratory Results Last 24 Hours Test 10/08/17 17:09 10/08/17 17:15 10/08/17 18:44 10/08/17 20:13 Urine Color YELLOW Urine Appearance CLOUDY Urine pH 5.0 Urine Specific [place] 1.024 Urine Protein TRACE Urine Glucose (UA) NEG Urine Ketones TRACE Urine Occult Blood NEG Urine Nitrite NEG Urine Bilirubin NEG Urine Urobilinogen NEG Urine Leukocyte Esterase NEG Urine WBC (Auto) 1-5 /hpf Urine RBC (Auto) 0-4 /hpf Urine Hyaline Casts (Auto) 5-10 /lpf Urine Epithelial Cells (Auto) >30 /lpf Urine Bacteria (Auto) NEG Urine Crystals CALCIUM OXALATE Urine Pathogenic Casts 1-5 WBC CASTS /lpf White Blood Count 12.43 K/uL Red Blood Count 4.62 M/uL Hemoglobin 14.0 g/dL Hematocrit 41.4 % Mean Corpuscular Volume 89.6 fL Mean Corpuscular Hemoglobin 30.3 pg Mean Corpuscular Hemoglobin Concent 33.8 g/dl Platelet Count 222 K/uL Mean Platelet Volume 10.6 fL Neutrophils (%) (Auto) 76.9 % Lymphocytes (%) (Auto) 12.9 % Monocytes (%) (Auto) 9.1 % Eosinophils (%) (Auto) 0.0 % Basophils (%) (Auto) 0.1 % Neutrophils # (Auto) 9.57 K/uL Lymphocytes # (Auto) 1.60 K/uL Monocytes # (Auto) 1.13 K/uL Eosinophils # (Auto) 0.00 K/uL Basophils # (Auto) 0.01 K/uL RDW Standard Deviation 45.6 fL RDW Coefficient of Variation 14.0 % Immature Granulocyte % (Auto) 1.0 % Immature Granulocyte # (Auto) 0.12 K/uL Sodium Level 136 mmol/L Potassium Level 3.3 mmol/L Chloride Level 102 mmol/L Carbon Dioxide Level 26 mmol/L Anion Gap 8.0 mmol/L Blood Urea Nitrogen 30 mg/dl Creatinine 1.13 mg/dl Est Creatinine Clear Calc Drug Dose 36.4 ml/min Estimated GFR () 54.7 Estimated GFR (Non- 47.2 BUN/Creatinine Ratio 26.9 Random Glucose 156 mg/dl Calcium Level 8.7 mg/dl Total Bilirubin 1.7 mg/dl Direct Bilirubin 0.4 mg/dl Aspartate Amino Transf (AST/SGOT) 47 U/L Alanine Aminotransferase (ALT/SGPT) 45 U/L Alkaline Phosphatase 76 U/L Total Protein 6.9 gm/dl Albumin 3.5 gm/dl Lipase 167 U/L Bedside Lactic Acid Venous 2.66 mmol/L 3.12 mmol/L Test 10/08/17 22:36 10/09/17 00:46 10/09/17 08:53 10/09/17 10:04 Lactic Acid Level 2.7 mmol/L 1.0 mmol/L White Blood Count 12.34 K/uL Red Blood Count 3.62 M/uL Hemoglobin 11.1 g/dL Hematocrit 32.3 % Mean Corpuscular Volume 89.2 fL Mean Corpuscular Hemoglobin 30.7 pg Mean Corpuscular Hemoglobin Concent 34.4 g/dl Platelet Count 156 K/uL Mean Platelet Volume 10.1 fL Neutrophils (%) (Auto) 61.2 % Lymphocytes (%) (Auto) 25.7 % Monocytes (%) (Auto) 12.0 % Eosinophils (%) (Auto) 0.4 % Basophils (%) (Auto) 0.1 % Neutrophils # (Auto) 7.55 K/uL Lymphocytes # (Auto) 3.17 K/uL Monocytes # (Auto) 1.48 K/uL Eosinophils # (Auto) 0.05 K/uL Basophils # (Auto) 0.01 K/uL RDW Standard Deviation 44.5 fL RDW Coefficient of Variation 13.7 % Immature Granulocyte % (Auto) 0.6 % Immature Granulocyte # (Auto) 0.08 K/uL Sodium Level 140 mmol/L Potassium Level 3.1 mmol/L Chloride Level 110 mmol/L Carbon Dioxide Level 23 mmol/L Anion Gap 7.0 mmol/L Blood Urea Nitrogen 21 mg/dl Creatinine 0.70 mg/dl Est Creatinine Clear Calc Drug Dose 58.5 ml/min Estimated GFR () 97.5 Estimated GFR (Non- 84.2 BUN/Creatinine Ratio 30.2 Random Glucose 94 mg/dl Calcium Level 7.3 mg/dl Test 10/09/17 10:16 Procalcitonin < 0.05 ng/ml (Elva Boogie CRNP) Assessment and Plan 76 year old female with schizophrenia and interstitial cystitis with pelvic pain Pelvic pain - Abdominal CT negative for acute process - BC pending, Trichomonas negative - Mildly elevated WBCs but negative procalcitonin - Lactic acid elevated on admission and trended down to wnl - continue IVF Hypokalemia - replaced, repeat prp in am Schizophrenia - Meds per psych consult and recommendations - patient was extremely agitated on admission and insistent that she was in severe pain. She was given quite a bit of narcotics in the ED and also Haldol which is likely the cause of her somnolence. - Will order PT/OT to see if she can get up and moving without pain. HLD - Continue atorvastatin Recent HCAP 10/01 - CXR did not show consolidation Full code (Elva Boogie CRNP) [employer] Physician Supervision Note: I interviewed and examined the patient. Discussed with Elva Boogie GORING CUTTER and agree with findings and plan as documented in the note. Any exceptions or clarifications are listed here: None Patient admitted after giving been given pain medication for pelvic pain. This is been ongoing problem for her and the pain exacerbates her schizophrenia where she has uncontrollable behavior. Patient was brought in our facility initially his observation due to her lethargy caused by her pain medication she' s returning to her baseline according to her son at the bedside today. I spoke to her son HILARIA says she's him was back to normal he is understanding that we will refer her to [facility] as an outpatient for further urological care Vital signs today she remains afebrile pulse of 60 respirations 18 BP slightly low at 95/56 100% on room air Heart is regular murmurs lungs are clear abdomen is normoactive bowel sounds soft she is nontender even in the suprapubic region Pelvic pain previously associated with interstitial cystitis, will continue to hydrate her and support her mental state with likely referral back to house of care and eventual outpatient referral to urology [facility] [place] Documented By: Bienvenido Montano (Bienvenido Montano M.D.)
[2017-10-10] VITALS: BP 98/60; PULSE 68; TEMP 36.3; O2SAT 93
[2017-10-10] MEDS: NSS + 20MEQ KCL 1000ML 1,000 ML IV SCH ×2 (02:37→10:31)
[2017-10-10 07:18] VITALS: BP 95/60; PULSE 59; TEMP 36.4; O2SAT 94
[2017-10-10 07:48] LABS: HEMATOCRIT 32.8 % (37-47); HEMOGLOBIN 10.3 g/dL (12.0-16.0); MEAN CELL VOLUME 92.4 fL (80-100); MEAN CORPUSCULAR HGB CONC 31.4 g/dl (32-36); MEAN PLATELET VOLUME 10.1 fL (7.4-10.4); PLATELET COUNT 161 K/uL (130-400); RED CELL DISTRIBUTION WIDTH CV 14.2 % (11.5-14.5); RED CELL DISTRIBUTION WIDTH SD 48.3 fL (36.4-46.3); WHITE BLOOD COUNT 9.14 K/uL (4.8-10.8)
[2017-10-10 08:00] VITALS: O2SAT 94
[2017-10-10] MEDS: VESICARE~ORDER AWAITING ACTION SCH ×2 (08:00)
[2017-10-10 08:24] LABS: CREATININE 0.64 mg/dl (0.60-1.20); POTASSIUM 3.8 mmol/L (3.5-5.1)
[2017-10-10] MEDS: PENTOSAN POLYSULFATE SODIUM 100 MG CAP PO SCH ×2 (08:32→13:13)
[2017-10-10] MEDS: ATORVASTATIN 40 MG TAB PO SCH (08:33)
[2017-10-10] MEDS: PHENAZOPYRIDINE HCL 200 MG TAB PO SCH ×2 (08:33→13:13)
[2017-10-10] MEDS: PERPHENAZINE 2 MG TAB PO SCH ×2 (08:35→13:13)
[2017-10-10] MEDS ORDERED: TRAM-10 PO (13:49)
[2017-10-10] MEDS ORDERED: PHEN95TA14 PO (13:49)
--- NOTE | 2017-10-10 13:50 | Discharge Instructions ---
Discharge Instructions Date of Service Oct 10, 2017. Admission Reason for Admission: Interstitial Cystitis, Intractable Pain Discharge Discharge Diagnosis / Problem: toxic encephalopahty, chronic bladder pain Discharge Goals Goal(s): Diagnostic testing, Therapeutic intervention Activity Recommendations Activity Limitations: as noted below Lifting Limitations: gradually increase as tolerated . Current Hospital Diet Patient's current hospital diet: Regular Diet Discharge Diet Recommended Diet: Regular Diet Pending Studies Studies pending at discharge: no Laboratory Results Hemoglobin A1c Test 08/10/17 14:09 Range/Units Estimated Average Glucose 117 mg/dl Hemoglobin A1c 5.7 H 4.5-5.6 % Lipid Panel Test 08/10/17 14:09 Range/Units Triglycerides Level 187 H 0-150 mg/dl Cholesterol Level 114 0-200 mg/dl HDL Cholesterol 40 mg/dl Cholesterol/HDL Ratio 2.9 LDL Cholesterol, Calculated 37 mg/dl Medical Emergencies . Who to Call and When: Medical Emergencies: If at any time you feel your situation is an emergency, please call 911 immediately. . Non-Emergent Contact Non-Emergency issues call your: Primary Care Provider, Urologist Call Non-Emergent contact if: temperature is above 101, your pain is unusual for you . . "Provider Documentation" section prepared by Bienvenido Montano. . VTE Core Measure Inpt VTE Proph given/why not?: SCD's
--- NOTE | 2017-10-10 13:56 | Discharge Summary ---
Discharge Summary Date of Service Oct 10, 2017. Discharge Summary Admission Date: Oct 09, 2017 at 15:42 Discharge Date: Oct 10, 2017 Discharge Disposition: Personal care Principal Diagnosis: toxic encephalopahty, chronic bladder pain Medication Reconciliation New Medications: Phenazopyridine Hcl (Azo Tabs) 95 Mg Tab 1 TAB PO BID, #60 DOSE Tramadol (Ultram) 50 Mg Tab 50 MG PO Q8H PRN for Pain, #20 TAB Continued Medications: Acetaminophen (Tylenol) 500 Mg Tab 500-1000 MG PO TID PRN for Pain or Fever, 0 Refills DO NOT EXCEED 4000 MG APAP/24 HOURS. Atorvastatin (Lipitor) 80 Mg Tab 80 MG PO DAILY, TAB 2000 Clobetasol Propionate (Temovate) 0.05 % Cre 1 APPLN TOP DAILY PRN for Itching for 90 Days, #60 GM 3 Refills Dextromethorphan-Guaifenesin (Tussin Dm) 1 Syp Syp 10 ML PO HS PRN for Cough Diphenhydramine Hcl (Diphenhist) 25 Mg Cap 25 MG PO HS 2000 Ibuprofen (Ibuprofen) 600 Mg Tab 600 MG PO TID PRN for Pain Pentosan Polysulfate Sodium (Elmiron) 100 Mg Cap 100 MG PO TID [id number] Perphenazine (Trilafon) 4 Mg Tab 4 MG PO TID, TAB [id number] Phenazopyridine HCl (Pyridium) 200 Mg Tab 200 MG PO TID for Bladder pain, #6 TAB Polyethylene (Polyethylene Glycol 3350) 527 Gm Soln 17 GM PO DAILY Solifenacin Succinate (Vesicare) 5 Mg Tab 5 MG PO DAILY 0800 Discontinued Medications: Dextromethorphan-Phenylephrine (Vicks Dayquil Cold & Flu) 1 Cap Cap 30 ML PO Q4 PRN for Cold Symptoms Levofloxacin (Levaquin) 750 Mg Tab 750 MG PO QPM, TAB take 750mg daily at 2000 for infection Prednisone (Prednisone) 20 Mg Tab 1 DOSE PO UD, TAB take 60mg daily for three days, then 40mg daily for three days, then 20mg daily for three days Discharge Exam Review of Systems: Constitutional: No fever, No chills, No weakness, No fatigue Psychiatric: + depression symptoms, + anhedonism Physical Exam: General Appearance: WD/WN, no apparent distress Eyes: normal inspection, PERRL, EOMI, sclerae normal Abdomen / GI: normal bowel sounds, non tender, soft Hospital Course Patient admitted after giving been given pain medication for pelvic pain in the ER causing sedation. This is been ongoing problem for her and the pain exacerbates her schizophrenia where she has uncontrollable behavior. Her son HILARIA says she was back to normal baseline and he is understanding that Dr Murray will refer her to [facility] as an outpatient for further urological care. this day of discharge she was awoken from sleep, and stated her pain was 10/10, this is without facial grimacing, abnormal vital signs and no pain on exam. She then closed her eyes and pretended to sleep. I informed her of her discharge and she was acceptable to this, will try to add AZO and some ultram sparingly, hopeful to have outpt referral from DR Murray to [facility] as per her son Will continue her typical schizophrenic meds and medication for prn needs will return to the house of care Documented By: Bienvenido Montano Total Time Spent: Greater than 30 minutes This includes examination of the patient, discharge planning, medication reconciliation, and communication with other providers. Discharge Instructions Please refer to the electronic Patient Visit Report (Discharge Instructions) for additional information. Additional Copies To [facility] Sol MD, Urology
[2017-10-10 15:17] VITALS: BP 95/60; PULSE 59; TEMP 36.4; O2SAT 94
== END 2017-10-10 15:25 | disposition home or self-care (01) | DRG 689 ==
LOC: C.EDB 16:15 → C.MS4W 10-09 02:55 → ENRESERV 10-09 03:06 → OBSVTOIN 10-09 15:42
PROVIDERS: ADMIT Hospitalist; ATTEND Internal Medicine
DX: N30.10 Interstitial cystitis (chronic) without hematuria (principal); G92 Toxic encephalopathy; E87.6 Hypokalemia; R45.1 Restlessness and agitation; F20.9 Schizophrenia, unspecified; E78.5 Hyperlipidemia, unspecified; Z79.899 Other long term (current) drug therapy; Z79.52 Long term (current) use of systemic steroids; Z87.01 Personal history of pneumonia (recurrent); T40.605A Adverse effect of unspecified narcotics, initial encounter